=== PATIENT | female | born 1985 | race Caucasian/White ===

== ENCOUNTER 2018-07-11 09:59 | Emergency (ER) | payer OTHER | END 2018-07-11 11:07 | disposition home or self-care (01) | LOC: ED 09:59 ==

== ENCOUNTER 2018-08-12 17:35 | Emergency (ER) | payer OTHER ==
[2018-08-12 19:32] VITALS: BP 118/78
== END 2018-08-12 19:32 | disposition home or self-care (01) ==
LOC: ED 17:35
DX: H66.91 Otitis media, unspecified, right ear (principal)